=== PATIENT | male | born 1980 | race African-American/Black ===

== ENCOUNTER 2018-05-29 07:25 | Emergency (ER) | payer OTHER ==
[~2018-05-29] VITALS: Ht 188 cm; Wt 148.8 kg
[2018-05-29 07:32] VITALS: Ht 188 cm; Wt 148.8 kg
[2018-05-29 08:51] LABS: BASOPHIL % 0.3 % (0-2); RED CELL DISTRIBUTION WIDTH 14.5 % (11.5-14.5)
[2018-05-29 08:53] LABS: PLATELET COUNT 481 x10^3mcL (130-400)
[2018-05-29 09:02] LABS: CALCIUM 10.2 mg/dL (8.5-10.1); CARBON DIOXIDE 30.6 mmol/L (21-32); CHLORIDE SERUM 94 mmol/L (98-107); CREATININE SERUM 1.1 mg/dL (0.7-1.3); GFR1 > 60 mL/min; GLUCOSE SERUM 344 mg/dL (74-106); POTASSIUM SERUM 4.6 mmol/L (3.5-5.1); SODIUM SERUM 133 mmol/L (136-145)
[2018-05-29 09:08] LABS: ALKALINE PHOSPHATASE 108 U/L (46-116); ALT/SGPT 31 U/L (16-63); AST/SGOT 20 U/L (15-37); BILIRUBIN TOTAL 0.44 mg/dL (0.20-1.00)
[2018-05-29 09:11] LABS: ALBUMIN 2.7 g/dL (3.4-5.0); TOTAL PROTEIN, SERUM 9.5 g/dL (6.4-8.2)
--- NOTE | 2018-05-29 13:58 | NUR ---
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 SS OBTAINED NAME OF INSURANCE ER PROJECT PLANNER/TY, SPOKE TO HER, SHE STATES NO BED AVAILABILITY CLOSER TO [place]. TY WILL CALL THE MOTHER. SS CALLED HER BACK [phone], EXPLAINED THAT [facility] WILL CALL AND EXPLAIN TO HER ABOUT THE LACK OF BED AVAILABILITY. THE MOTHER APPRECIATED THE FOLLOW UP.
[2018-05-29 17:52] VITALS: BP 176/99
== END 2018-05-29 17:52 | disposition short-term general hospital (02) ==
LOC: ED 07:25
PROVIDERS: Emergency Medicine
DX: E11.621 Type 2 diabetes mellitus with foot ulcer (principal); E11.65 Type 2 diabetes mellitus with hyperglycemia; M86.8X7 Other osteomyelitis, ankle and foot; J45.909 Unspecified asthma, uncomplicated
CPT/HCPCS: 82962; J0696; J1815; J3370; J7040; Q0092

== ENCOUNTER 2019-12-29 01:45 | Emergency (ER) | payer OTHER ==
[~2019-12-29] VITALS: Ht 188 cm; Wt 153.4 kg
[2019-12-29 02:03] VITALS: BP 171/106; Ht 188 cm; Wt 153.4 kg
== END 2019-12-29 04:35 | disposition home or self-care (01) ==
LOC: ED 01:45
DX: M54.32 Sciatica, left side (principal); J45.909 Unspecified asthma, uncomplicated; E66.9 Obesity, unspecified